=== PATIENT | male | born 1995 | race Caucasian/White ===

== ENCOUNTER 2017-11-30 16:13 | Emergency (ER) | payer BC ==
--- NOTE | 2017-11-30 18:50 | ED ---
Influenza-Like Illness - HPI Summary HPI Summary: 22 male presents to ED accompanied by mother with complaints of cough, fever/ chills, body aches, sore throat and feeling ill. Denies production with cough. Denies vomiting, diarrhea or abdominal pain. Has intermittent nausea along with decreased appetite. History of pneumonia. Denies any past medical history or medications. Takes ibuprofen/Tylenol with relief. States symptoms began 5 days ago and have not gotten better. States they've worsened. Was seen on Tuesday at [facility] had strep test obtained and was negative. No known sick contacts. No other complaints. - History of Current Complaint Chief Complaint: EDFever Time Seen by Provider: 11/30/17 17:49 Hx Obtained From: Patient, Family/Educational Speech Language Clinician - Mother Onset/Duration: Sudden Onset, Lasting Days, Still Present, Worse Since Severity: Moderate Associated Signs & Symptoms: Fever, Myalgia, Cough, Sore Throat, Nasal Congestion, Headache - Allergy/Home Medications Allergies/Adverse Reactions: Allergies Allergy/AdvReac Type Severity Reaction Status Date / Time No Known Allergies Allergy Verified 11/30/17 21:14 PMH/Surg Hx/FS Hx/Imm Hx Endocrine/Hematology History: Denies: Hx Blood Disorders, Hx Diabetes Cardiovascular History: Denies: Hx Hypertension Respiratory History: Reports: Hx Pneumonia Denies: Hx Asthma - Surgical History Surgery Procedure, Year, and Place: None - Immunization History Immunizations Up to Date: Yes Infectious Disease History: No Infectious Disease History: Denies: Traveled Outside the [place] in Last 30 Days - Family History Known Family History: Positive: None - Social History Alcohol Use: None Substance Use Type: Reports: None Smoking Status (MU): Never Smoked Tobacco Review of Systems Positive: Fever, Chills, Fatigue Positive: Sore Throat, Nasal Discharge Cardiovascular: Negative Positive: Shortness Of Breath - on exertion, Cough Positive: Nausea - intermittent Positive: Myalgia Skin: Negative Positive: Headache All Other Systems Reviewed And Are Negative: Yes Physical Exam Triage Information Reviewed: Yes Vital Signs On Initial Exam: Initial Vitals Temp Pulse Resp BP Pulse Ox 97.9 F 71 18 126/72 96 11/30/17 16:15 11/30/17 16:15 11/30/17 16:15 11/30/17 16:15 11/30/17 16:15 Vital Signs Reviewed: Yes Appearance: Positive: No Pain Distress, Well-Nourished, Ill-Appearing Skin: Positive: Warm, Skin Color Reflects Adequate Perfusion, Dry. Negative: Cold, Numb, Cyanosis @, Pale, Erythema @ Head/Face: Positive: Normal Head/Face Inspection Eyes: Positive: EOMI, BASILIA, Conjunctiva Clear ENT: Positive: Hearing grossly normal, Pharyngeal erythema, Nasal congestion, TMs normal, Tonsillar swelling, Tonsillar exudate, Uvula midline. Negative: Sinus tenderness Dental: Negative: Cervical Lymphadenopathy Neck: Positive: Supple, Nontender, No Lymphadenopathy Respiratory/Lung Sounds: Positive: Clear to Auscultation, Breath Sounds Present , Decreased Breath Sounds - Bilateral lower lung jimenez worse on the right than left, Rales - Right lower lung. Negative: Rhonchi, Wheezes Cardiovascular: Positive: Normal, RRR, Pulses are Symmetrical in both Upper and Lower Extremities. Negative: Murmur, Rub Abdomen Description: Positive: Nontender, Soft Bowel Sounds: Positive: Present Musculoskeletal: Positive: Normal, Strength/ROM Intact Neurological: Positive: Normal, Sensory/Motor Intact, Alert, Oriented to Person Place, Time, NV Bundle Intact Distally, Normal Gait Diagnostics - Vital Signs Vital Signs Temp Pulse Resp BP Pulse Ox 11/30/17 16:15 97.9 F 71 18 126/72 96 - Laboratory Result Diagrams: 11/30/17 20:00 11/30/17 20:00 Lab Statement: Any lab studies that have been ordered have been reviewed, and results considered in the medical decision making process. - Radiology chest Xray Interpretation: Positive (See Comments) - RIGHT LOWER LOBE INFILTRATE MOST CONSISTENT WITH PNEUMONIA. Radiology Interpretation Completed By: Radiologist Re-Evaluation - Re-Evaluation First Eval Re-Evaluation Time: 20:00 Change: Unchanged - Updated on labs and cultures Second Eval Re-Evaluation Time: 21:10 Change: Unchanged - Updated on chest x-ray and rest of lab screens including mono. Agrees with plan and understands. Flu Symptom Course/Dx - Course Course Of Treatment: Flu, strep, mono obtained and all negative. CBC CMP and chest x-ray obtained to rule out pneumonia. X-ray showed right lower lobe pneumonia. However labs are unremarkable not showing any signs of elevation of white blood cells. Will treat outpatient with levofloxacin, decongestants, inhaler to use as needed and symptomatic measures. Fluids and rest. Aware worsening signs and symptoms watch out for. Normal vitals and physical exam otherwise. Patient has had history of pneumonia a few years ago and recommended to follow up with primary care provider when he gets home to let them know. Follow-up with [facility] in 2 days to ensure improvement and recheck. - Diagnoses Differential Diagnosis/HQI/PQRI: Positive: Bronchitis, Influenza, Pneumonia, Upper Respiratory Infection Provider Diagnoses: Pneumonia Discharge - Sign-Out/Discharge Documenting (check all that apply): Discharge - Discharge Plan Condition: Stable Disposition: HOME Prescriptions: Albuterol HFA INHALER* [Ventolin HFA Inhaler*] 1 - 2 puff INH Q4H PRN #1 mdi PRN Reason: Sob/Wheezing levoFLOXacin [Levofloxacin] 750 mg PO DAILY #5 tablet Patient Education Materials: Levofloxacin (By mouth), Community Acquired Pneumonia (ED) Referrals: [facility] - Christophe CAMPBELL [Primary Care Provider] - Additional Instructions: Take prescribed medication as directed. Increase fluid intake. Get plenty of rest. Salt water gargles and decongestants sold over the counter if needed (mucinex) Continue ibuprofen/Tylenol for body aches and fever. Follow up with PCP in 2-3 days for re-check, sooner if needed and symptoms worsen. Any new or worsening symptoms please seek medical attention promptly. - Billing Disposition and Condition Condition: STABLE Disposition: HOME
--- NOTE | 2017-11-30 20:08 | RAD ---
INDICATION: Fever evaluate for pneumonia. COMPARISON: There are no prior studies available for comparison. TECHNIQUE: Dual-energy PA and lateral views of the chest were obtained. FINDINGS: The heart is within normal limits in size. Mediastinal and hilar contours appear within normal limits. There is a moderate size infiltrate present in the right lower lobe most consistent with pneumonia. No pleural effusion is seen. There is a moderate dorsal scoliosis convex toward the right side. IMPRESSION: RIGHT LOWER LOBE INFILTRATE MOST CONSISTENT WITH PNEUMONIA.
[2017-11-30 20:25] LABS: Hematocrit 46 % (42-52); Hemoglobin 15.8 g/dl (14.0-18.0); Mean Corpuscular HGB Conc 34 g/dl (31-36); Mean Corpuscular Hemoglobin 29 pg (27-31); Mean Corpuscular Volume 84 fL (80-94); Platelet Count 171 10^3/ul (150-450); Red Blood Count 5.45 10^6/ul (4.0-5.4); Red Cell Distribution Width 13 % (10.5-15); White Blood Count 9.8 10^3/ul (3.5-10.8)
[2017-11-30 20:56] LABS: ABS Basophils 0 10^3/ul (0-0.2); ABS Eosinophils 0.2 10^3/ul (0-0.6); ABS Lymphocytes 1.5 10^3/ul (1.0-4.8); ABS Monocytes 1.7 10^3/ul (0-0.8); ABS Neutrophils 6.4 10^3/ul (1.5-7.7); ABS Nucleated RBC 0 10^3/ul; Eosinophil % 1.7 % (0-6); Lymphocyte % 14.9 % (25-47); Nucleated Red Blood Cells % 0
[2017-11-30] MEDS ORDERED: Levofloxacin TAB* 250 MG PO ONE (21:08)
[2017-11-30 21:32] VITALS: BP 125/69
== END 2017-11-30 21:31 | disposition home or self-care (01) ==
LOC: ED 16:13
DX: J18.9 Pneumonia, unspecified organism (principal)
CPT/HCPCS: 36415; 71046; 80053; 85025; 86308; 87502; 87651; 99283; A9270-GY